=== PATIENT | male | born 1950 | race Caucasian/White ===

== ENCOUNTER → 2018-04-13 | Outpatient (CLI) | payer OTHER ==
[~2018-04-13] VITALS: Ht 190.5 cm; Wt 108.9 kg
[~2018-04-13] MED LIST: ALLEGRA ALLERG180 MG PO; BUTALB-APAP-CA1 EACH PO; BYSTOLIC10 MG PO
--- NOTE | ~2018-04-13 | HPC ---
[facility] [place] [address] PAIN MANAGEMENT CONSULTATION Name: MARIANO KIRK Room #: REG [facility].#: [id number] Admission: 04/13/18 Attend Phys: Dexter Diggs MD Discharge: Date of : 52 Report #: [id number] THIS REPORT FOR: //name// CC: Dr. Lizandro Diggs DATE OF SERVICE: 04/13/2018 CHIEF COMPLAINT: Intermittent low back pain with radiation into the legs, right and left. HISTORY OF PRESENT ILLNESS: This was a 25-minute consultation today for the patient who is here today at the request of Dr. Lizandro Nguyen. He scores his pain today as a 0/10. He is a fit 67-year-old gentleman who has been active all his life. He has had intermittent episodes of sharp lower back pain that radiates into his hip and at times into his foot, right is generally worse than the left, but it can alternate. His pain is typically activity driven. He was climbing a ladder and moving some boxes and had some sudden onset of back pain. It was improved by rest and oral steroids. He has had several of these intermittent episodes and then some have been worse than others. He saw Dr. Reina Barrientos at [place] and on his initial visit, Dr. Barrientos recommended a series of three epidural injections. He was better by the first, but had two additional injections. He continued to improve over the course of the next year or so, but had a second episode and saw Dr. Barrientos for the last time on 10/2016. On that occasion, only one injection was given. He is now back to see me for the first time. He was initially in the midst of an episode when this appointment was made, but has improved today as we often see in chronic recurrent back pain. He scores his pain as 0. MEDICATIONS: Bystolic and Diana. ALLERGIES: AMISH INHIBITORS AND HE HAS A SIGNIFICANT REACTION WITH ANGIOEDEMA WHEN TAKING NONSTEROIDAL ANTI-INFLAMMATORY DRUGS. He denies a history of inflammatory triad. PAST MEDICAL HISTORY: Significant for hypertension and a history of right meniscectomy. No other surgeries. Denies other healthcare issues. 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 He has 3 grown children and grandchildren. He enjoys playing with them. He occasionally plays golf and is active around the home. He played sports in his youth. He denies use of tobacco, enjoys alcohol 2-3 times per [facility] [address] [place] [address] PAIN MANAGEMENT CONSULTATION Name: MARIANO KIRK Room #: REG CLI [facility]#: [id number] Admission: 04/13/18 Attend Phys: Dexter Diggs MD Discharge: Date of : 52 Report #: [id number] week in a social setting. REVIEW OF SYSTEMS: Essentially negative. The multiple-point questionnaire was completed by the patient, describing only the use of glasses and contact lenses. PHYSICAL EXAMINATION: GENERAL: This is a pleasant 67-year-old gentleman. VITAL SIGNS: He is 6 feet 3 inches, 240 pounds with a BMI of 30. His blood pressure is 164/99 today in the initial visit, heart rate 63, respirations 16 and O2 sat 99. MUSCULOSKELETAL: He moves easily from a sitting to standing position and straightens up without difficulty. He ambulates without antalgic features. Examination of the spine reveals normal alignment. He has no pain with forward flexion, extension, rotation or [id number] tilt today. EXTREMITIES: Examination of the hips is negative for any pain with internal and external rotation. Straight leg raising is negative for radicular pain today. Deep tendon reflexes are trace at the knees and ankles and symmetrical. Sensation is reported to be normal. No focal weakness in any of the lower extremity muscle groups. DIAGNOSTIC DATA: X-rays reviewed and would be considered normal for age. He has the usual manner of degenerative disk disease in the lower disks, particularly at L4 and L5. There is also some facet arthropathy at L4-L5 and L5-S1. It should be noted as a sidelight that there is a lower left kidney cyst, which is large, measuring 8.[address] Nguyen is aware of this, according to the patient. These are generally benign. IMPRESSION: Recurring low back pain with spondylosis and radiculopathy on an intermittent basis. RECOMMENDATIONS: He does not need an epidural injection today, but I would be happy to provide one for him and I have expressed my philosophy in the use of epidural injections as a management tool. Multiple questions were asked and answered. I also spent some time with him discussing the importance of regular daily exercise program, including a walking program and a good range of motion, flexibility and strengthening program for the lumbar spine, which will help with core strengthening. This seems to provide a good prevention of episodes and also is helpful for the symptoms of chronic pain. I do not believe he necessarily needs a Physical Therapy referral for this. Handouts were provided. [facility] [address] [place] [address] PAIN MANAGEMENT CONSULTATION Name: MARIANO KIRK Room #: REG [facility] [place]#: [id number] Admission: 04/13/18 Attend Phys: Dexter Diggs MD Discharge: Date of : 52 Report #: [id number] Follow up as needed. By: [id number] Dexter Diggs MD /nt
[2018-04-13 13:06] VITALS: BP 164/99
--- NOTE | 2018-04-13 13:24 | NUR ---
Pain Clinic Assessment: 1. History of Osteoarthritis: History of Rheumatoid Arthritis: 2. Height: 6 ft. 3 in. 190.5 cm. Weight: 240.0 lb. oz. 108.864 kg. Patient's BMI: 30.0 3. Vital Signs: BP: 164/99 Pulse: 63 Resp: 16 Temp: 02 Sat: 99 ECG Mon: 4. Pain Intensity: 0 5. Fall Risk: Dizziness: N Needs help standing or walking: N Fallen in the last 3 months: N Fall risk comments: 6. Patient on Blood Thinner: None 7. History of Hypertension: Y 8. Opioid Therapy greater than 6 weeks: N Opiate Contract Signed: 9. Risk Assessment Tool Provided: 10. Functional Assessment Tool: 11. Recreational Drug Use: Never Drug Type: Tobacco Use: Never Smoker Tobacco Type: Amount or Packs/day: How Many Years: Alcohol Use: Yes Frequency: Weekly Quant:
== END ==
LOC: PAIN 08:26
DX: M47.26 Other spondylosis with radiculopathy, lumbar region (principal); Z79.899 Other long term (current) drug therapy